=== PATIENT | female | born 2000 | race Caucasian/White ===

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

== ENCOUNTER 2021-11-30 11:55 | Emergency (ER) | payer SELFPAY ==
[2021-11-30 12:06] VITALS: BP 126/66; PULSE 75; TEMP 98.6; BMI 25.8
[2021-11-30] MEDS ORDERED: DIPHTH,PERTUSS(ACELL),TET 0.5 ML DISP.SYRIN IM ONE ×2 (13:19→13:28)
[2021-11-30] MEDS ORDERED: IBUPROFEN 600 MG TABLET (FP) PO ONE ×2 (13:19→13:28)
== END 2021-11-30 13:47 | disposition home or self-care (01) ==
LOC: JERFT 11:55
PROC: 3E0234Z Introduction of Serum, Toxoid and Vaccine into Muscle, Percutaneous Approach (ICD-10-PCS; principal; 2021-11-30)
DX: M25.532 Pain in left wrist (principal); W00.0XXA Fall on same level due to ice and snow, initial encounter
CPT/HCPCS: 73110-TC-LT-FY; 73130-TC-LT-FY; 90715; 99284-25